=== PATIENT | female | born 1960 | race Caucasian/White ===

== ENCOUNTER → 2018-07-01 | Outpatient (CLI) | payer OTHER ==
[~2018-07-01] MED LIST: ABILIFY PO; DCS100C PO; ESTR1TAB24 PO
--- NOTE | 2018-07-01 10:14 | Diagnostic Imaging Report ---
INDICATION: Back pain. TECHNIQUE: Two views were obtained. FINDINGS: There is some mild leftward degenerative curvature of the lumbar spine. Vertebral body heights are well-maintained. There is no spondylolysis or spondylolisthesis. No fractures are identified. IMPRESSION: Mild lumbar spondylosis and degenerative disc disease as described. Dictated by: Dictated on workstation # [id number]
--- NOTE | 2018-07-01 10:16 | Diagnostic Imaging Report ---
INDICATION: Pain. TECHNIQUE: Two views were obtained. FINDINGS: The alignment of the cervical spine is normal. The vertebral body heights are well-maintained. There is some degenerative disc disease at C5-6 and C6-7. The prevertebral soft tissues are within normal limits. There is no fracture or traumatic subluxation. IMPRESSION: Mild lower cervical degenerative disc disease as described, otherwise unremarkable. Dictated by: Dictated on workstation # [id number]
== END ==
LOC: RAD 09:34
PROVIDERS: ATTEND Family Medicine
DX: Z02.71 Encounter for disability determination (principal); M51.36 Other intervertebral disc degeneration, lumbar region; M47.816 Spondylosis without myelopathy or radiculopathy, lumbar region; M50.322 Other cervical disc degeneration at C5-C6 level
CPT/HCPCS: 72040; 72100

== ENCOUNTER 2022-11-14 14:21 | Emergency (ER) | payer SELFPAY ==
[~2022-11-14] VITALS: Ht 147 cm; Wt 82.0 kg
--- NOTE | 2022-11-14 14:42 | ED Head Injury ---
General Chief Complaint: Laceration Stated Complaint: HEAD LACERATION Nursing Triage Note: PT TO RM 6 PER W/C. PT STATES WAS WALKING TOE CAUGHT ON RUG AND HIT CABINET. DENIES NECK PAIN, HEAD PAIN, OR LOC. PT HAS APPROX 1CM LAC OVER R EYEBROW. PT HAS HX OF CEREBRAL ATAXIA. PT HAS R EYE BLACKEND, FACE AND CHEEK BRUISED Source: patient Exam Limitations: no limitations History of Present Illness Date Seen by Provider: Nov 14, 2022 Time Seen by Provider: 14:34 Initial Comments 62-year-old female presents to the ER for a laceration above her right eye. She states that around 1:30 PM she slipped and fell and hit her head on the corner of a counter. Denies loss of consciousness. Does not take any blood thinners. Denies current dizziness, nausea, vomiting, vision changes. Allergies and Home Medications Allergies Coded Allergies: No Known Drug Allergies (Unverified , 02/01/10) Patient Home Medication List Home Medication List Reviewed: Yes Docusate Sodium (Colace) 100 Mg Capsule, 100 MG PO BID, (Reported) Entered as Reported by: DEWEY JACQUES on 02/02/10 1409 Estradiol (Estradiol) 1 Mg Tablet, 2 MG PO DAILY, (Reported) Entered as Reported by: DEWEY JACQUES on 02/02/10 1407 [Abilify] , 2 MG PO DAILY, (Reported) Entered as Reported by: CELESTINE PATEL on 02/01/10 1325 Review of Systems Review of Systems Constitutional: see HPI Past Imedxnj-Znrayy-Eaprzc Hx Patient Social History Tobacco Use?: No Substance use?: No Alcohol Use?: No Pt feels they are or have been: No Immunizations Up To Date First/Initial COVID19 Vaccinat: YES Second COVID19 Vaccination Leonard: YES Past Medical History Surgery/Hospitalization HX: CEREBRAL ATAXIA Reproductive Disorders: No Physical Exam Vital Signs Vital Signs - First Documented 11/14/22 14:22 Temp 36.0 Pulse 90 Resp 16 B/P (MAP) 146/82 (103) Pulse Ox 100 Capillary Refill : Less Than 3 Seconds Height, Weight, BMI Height: '" Weight: lbs. oz. kg; 37.00 BMI Method: General Appearance: WD/WN, no apparent distress HEENT: PERRL/EOMI, TMs normal, other (Swelling and ecchymosis to right cheek) Neck: supple, normal inspection Cardiovascular: regular rate, rhythm Respiratory: lungs clear, normal breath sounds, no respiratory distress, no accessory muscle use Extremities: normal range of motion, normal inspection Psychiatric: alert [place] Nerves: normal hearing, normal speech, PERRL Skin: normal color, warm/dry [place] Coma Score Best Eye Response: (4) Open Spontaneously Best Verbal Response: (5) Oriented Best Motor Response: (6) Obeys Commands Procedures/Interventions Wound Location: Face Wound Length (cm): 1 Wound's Depth, Shape: linear Wound Explored: clean Irrigated w/ Saline (ccs): 50 Anesthesia: 1% Lidocaine Wound Debrided: minimal Suture: Prolene Suture Size: 5-0 Number of Sutures: 2 Progress/Results/Core Measures Results/Orders My Orders Orders - RADHA MONTES APRN Ct Head/Face/Cervical Wo (11/14/22 14:38) Vital Signs/I&O 11/14/22 14:22 Temp 36.0 Pulse 90 Resp 16 B/P (MAP) 146/82 (103) Pulse Ox 100 Blood Pressure Mean: 103 Progress Progress Note : Progress Note Patient seen and evaluated, resting comfortably in bed, no acute distress. B ased on exam and symptoms, CT of head and neck ordered. Will repair laceration with sutures. 1619 CT reviewed. Chronic volume loss in the brain. No evidence of intraorbital hematoma, no acute facial fracture. Loss of normal cervical lordosis which may be due to positioning or muscle spasm. Laceration was repaired, see procedure note. Results discussed with patient. Discharge instructions and return precautions provided. After patient was already discharged, I again reviewed the CT and saw that there was a nodule on her thyroid. I called and spoke with patient's daughter to inform them of this nodule and to have her follow-up with her primary care provider. Diagnostic Imaging Diagonstic Imaging: CT Plain Films/CT/US/NM/MRI: c-spine, head Comments [facility]. [place], [place] NAME: [facility] REC#: [id number] PT STATUS: REG ER : 1960 PHYSICIAN: RADHA MONTES APRN ADMIT DATE: 11/14/22/ER Draft Date of Exam:11/14/22 CT HEAD/FACE/CERVICAL WO PROCEDURE: CT head, face, and cervical spine without contrast. TECHNIQUE: Multiple contiguous axial images were obtained through the head, neck, and facial bones without the use of intravenous contrast. Sagittal and coronal reformations through the cervical spine and facial bones were also performed. Auto Exposure Controls were utilized during the CT exam to meet ALARA standards for radiation dose reduction. INDICATION: Fall with trauma to head, cervical spine and face. FINDINGS: CT HEAD: COMPARISON: 07/29/2013. Ventricles and sulci are prominent. In particular, there is significant dilatation of fourth ventricle with cerebellar atrophy. These findings are similar without evidence of significant change. There is no mass effect or shift of midline structures. IMPRESSION: Chronic volume loss in the brain, most pronounced in the cerebellum where there is significant loss of volume and fourth ventricular dilatation. MAXILLOFACIAL CT: There is laceration and contusion in the right supraorbital scalp region. Globes are intact. There is no evidence of intraorbital hematoma. No acute facial fracture is seen. There is no evidence of paranasal sinus air-fluid level. IMPRESSION: Contusion and laceration in the right supraorbital region without other evidence of acute maxillofacial abnormality. Periapical lucencies involve numerous mandibular teeth and there is impaction of posterior left maxillary molar. Dental consultation would be useful. CT CERVICAL SPINE: Multiple contiguous axial CT images of the cervical spine were obtained with sagittal and coronal reformatted images produced. FINDINGS: There is loss of normal cervical lordosis. Vertebral body heights and disc spaces are maintained. Prevertebral soft tissues are unremarkable, and there is no evidence of paraspinous hematoma. There is heterogeneous density in the inferior pole of left lobe of the thyroid gland which may represent solid nodule measuring up to approximately 1.6 cm in size. IMPRESSION: Loss of normal cervical lordosis which may be due to positioning or muscle spasm. There is, otherwise, no CT evidence of acute cervical spinal abnormality. 1.6 cm left lower pole thyroid nodule could be assessed with ultrasonography, if indicated. Dictated on workstation # [id number] Dict: 11/14/22 1513 Trans: 11/14/22 1619 [id number] Interpreted by: JOLENE STEPHEN MD Electronically signed by: Departure Impression Primary Impression: Fall Additional Impressions: Head injury Laceration Disposition: HOME, SELF-CARE Condition: Stable Departure-Patient Inst. Decision time for Depature: 16:19 Referrals: NO,LOCAL PHYSICIAN (PCP/Family) Primary Care Physician Patient Instructions: Minor Head Injury (DC) Add. Discharge Instructions: Keep your sutures clean and dry, you may shower and let water run over them, do not soak or scrub them. Watch for signs of infection including redness, swelling, discolored odorous drainage. Return in 5 days to have the sutures removed. Return for signs of infection, vision changes, recurrent vomiting, difficulty with normal activities, abnormal behavior, difficulty walking, or any other new, concerning, or worsening symptoms. All discharge instructions reviewed with patient and/or family. Voiced understanding. RADHA DOMINGUEZ [employer] Nov 14, 2022 14:42
--- NOTE | 2022-11-14 15:33 | Diagnostic Imaging Report ---
PROCEDURE: CT head, face, and cervical spine without contrast. TECHNIQUE: Multiple contiguous axial images were obtained through the head, neck, and facial bones without the use of intravenous contrast. Sagittal and coronal reformations through the cervical spine and facial bones were also performed. Auto Exposure Controls were utilized during the CT exam to meet ALARA standards for radiation dose reduction. INDICATION: Fall with trauma to head, cervical spine and face. FINDINGS: CT HEAD: COMPARISON: 07/29/2013. Ventricles and sulci are prominent. In particular, there is significant dilatation of fourth ventricle with cerebellar atrophy. These findings are similar without evidence of significant change. There is no mass effect or shift of midline structures. IMPRESSION: Chronic volume loss in the brain, most pronounced in the cerebellum where there is significant loss of volume and fourth ventricular dilatation. MAXILLOFACIAL CT: There is laceration and contusion in the right supraorbital scalp region. Globes are intact. There is no evidence of intraorbital hematoma. No acute facial fracture is seen. There is no evidence of paranasal sinus air-fluid level. IMPRESSION: Contusion and laceration in the right supraorbital region without other evidence of acute maxillofacial abnormality. Periapical lucencies involve numerous mandibular teeth and there is impaction of posterior left maxillary molar. Dental consultation would be useful. CT CERVICAL SPINE: Multiple contiguous axial CT images of the cervical spine were obtained with sagittal and coronal reformatted images produced. FINDINGS: There is loss of normal cervical lordosis. Vertebral body heights and disc spaces are maintained. Prevertebral soft tissues are unremarkable, and there is no evidence of paraspinous hematoma. There is heterogeneous density in the inferior pole of left lobe of the thyroid gland which may represent solid nodule measuring up to approximately 1.6 cm in size. IMPRESSION: Loss of normal cervical lordosis which may be due to positioning or muscle spasm. There is, otherwise, no CT evidence of acute cervical spinal abnormality. 1.6 cm left lower pole thyroid nodule could be assessed with ultrasonography, if indicated. Dictated by: Dictated on workstation # [id number]
[2022-11-14 16:30] VITALS: BP 146/82
== END 2022-11-14 16:30 | disposition home or self-care (01) ==
LOC: EDUNIT# 14:21 → ER 14:23
DX: S09.90XA Unspecified injury of head, initial encounter (principal); S01.81XA Laceration without foreign body of other part of head, initial encounter; E04.1 Nontoxic single thyroid nodule; W01.198A Fall on same level from slipping, tripping and stumbling with subsequent striking against other object, initial encounter; Y93.01 Activity, walking, marching and hiking
CPT/HCPCS: 12011; 70450; 70486; 72125

== ENCOUNTER 2022-11-20 14:17 | Emergency (ER) | payer SELFPAY ==
[2022-11-20 14:22] VITALS: BP 124/96
== END 2022-11-20 14:30 | disposition home or self-care (01) ==
LOC: EDUNIT# 14:17 → ER 14:20
DX: Z48.02 Encounter for removal of sutures (principal)